=== PATIENT | female | born 1980 ===

== ENCOUNTER 2017-01-18 12:44 | Observation (INO) | payer SELFPAY ==
[2017-01-18 12:47] VITALS: BMI 45.7
[2017-01-18 13:30] LABS: ADD MANUAL DIFF? NO
--- NOTE | 2017-01-18 13:32 | ED PDOC ---
Arrival/HPI - General Chief Complaint: Syncope Time Seen by Provider: 01/18/17 13:07 Historian: Patient - History of Present Illness Narrative History of Present Illness (Text): 01/18/17 13:17 A 36 year old female presents to the emergency department complaining of a syncopal episode at home today. Patient reports the last thing she remembers is feeling unsteady and waking up on the floor. Patient is unsure how long she was passed out. Patient states she has been experiencing intermittent frontal headaches with blurry vision for 1 month. She states her symptoms have worsened over the past week. Patient notes nausea but denies any injuries, head trauma, neck pain, back pain, fever, chills, vomiting, diarrhea, abdominal pain, chest pain, shortness of breath or any other complaints. Denies speech difficulties. Denies injury. Denies fever. Denies facial swelling. Denies new medications. Blurred vision worse when looking in specific directions. PMD: None 01/18/17 18:28 Time/Duration: Prior to Arrival (syncopal episode), Other (1 month headache and blurry vision) Symptom Course: Worsening Quality: Other Context: Other Past Medical History - Provider Review Nursing Documentation Reviewed: Yes - Cardiac Hx Cardiac Disorders: No - Pulmonary Hx Respiratory Disorders: Yes Hx Asthma: Yes - Neurological Hx Neurological Disorder: No - HEENT Hx HEENT Disorder: No - Renal Hx Renal Disorder: No - Endocrine/Metabolic Hx Endocrine Disorders: No - Hematological/Oncological Hx Blood Disorders: No - Integumentary Hx Dermatological Disorder: No Hx Basal Cell Carcinoma: No - Musculoskeletal/Rheumatological Hx Musculoskeletal Disorders: No - Gastrointestinal Hx Gastrointestinal Disorders: No - Genitourinary/Gynecological Hx Genitourinary Disorders: No - Psychiatric Hx Psychophysiologic Disorder: No Hx Substance Use: No Family/Social History - Physician Review Nursing Documentation Reviewed: Yes Family/Social History: CAD/SC Smoking Status: Light Smoker < 10 Cigarettes Daily Hx Alcohol Use: No Hx Substance Use: No Allergies/Home Meds Allergies/Adverse Reactions: Allergies No Known Allergies Allergy (Verified 01/18/17 17:58) Home Medications: Home Meds Medication Instructions Recorded Confirmed No Known Home Med 01/18/17 01/18/17 Review of Systems - Review of Systems Constitutional: Fatigue. absent: Fevers, Night Sweats Eyes: Vision Changes (Blurry vision), Photophobia. absent: Eye Pain ENT: absent: Hearing Changes Respiratory: absent: SOB, Cough Cardiovascular: Syncope. absent: Chest Pain, Edema, HERR Gastrointestinal: Nausea. absent: Abdominal Pain, Diarrhea, Vomiting Genitourinary Female: absent: Dysuria, Urine Output Changes Musculoskeletal: absent: Back Pain, Neck Pain Skin: absent: Rash Neurological: Headache, Dizziness, Gait Changes. absent: Focal Weakness, Speech Changes, Facial Droop, Seizure Endocrine: absent: Polyuria Hemo/Lymphatic: absent: Easy Bleeding Physical Exam - Physical Exam Narrative Physical Exam (Text): Head: Atraumatic. Normocephalic. No sinus tenderness. No rash or swelling. No temporal tenderness or cords. Eyes: Pupils are equal. Visual acuity is intact. Patient with diplopia when looking to left ? nystagmus and limitation with lateral gaze in both eyes, possibly effort related. Visual russell intact. No ptosis. No "floaters". Fundoscopic exam grossly unremarkable. ENT: Mucous membranes are moist and intact. Oropharynx is clear and symmetric. No facial droop. Neck: Supple. Full ROM. No JVD. No lymphadenopathy. No bruits. No meningeal signs. Cardiovascular: Regular rate. Regular rhythm. No murmurs, rubs, or gallops. Distal pulses are 2+ and symmetric. Pulmonary/Chest: No evidence of respiratory distress. Clear to auscultation bilaterally. No wheezing, rales or rhonchi. Abdominal: Soft and non-distended. There is no tenderness. No rebound, guarding, or rigidity. No organomegaly. Good bowel sounds. Back: No CVA tenderness. Extremities: No edema. No cyanosis. No clubbing. Full range of motion in all extremities. No calf tenderness. Skin: Skin is warm and dry. No petechiae. No purpura. Neurological: Alert, awake, and oriented. Normal rapid alternating movements. Normal finger to nose. No ptosis. No facial droop. No pronator drift. Reflexes symmetric and intact. No meningeal signs. ? Cranial nerve palsy with eye gaze. Visual acuity intact. Psychiatric: Good eye contact. Normal interaction, affect, and behavior. Vital Signs Reviewed: Yes Vital Signs Temp Pulse Resp BP Pulse Ox 01/18/17 12:47 98 F 87 16 121/88 100 Temperature: Afebrile Blood Pressure: Normal Pulse: Regular Respiratory Rate: Normal Appearance: Positive for: Well-Appearing, Non-Toxic, Comfortable Pain Distress: None Mental Status: Positive for: Alert and Oriented X 3 Medical Decision Making ED Course and Treatment: 01/18/17 13:17 Impression: A 36 year old female presented after syncopal episode. Patient complains of headache and blurry vision for 1 month. Differential Diagnosis included but are not limited to: cranial nerve deficit, brain mass, ophthalmic disturbance, MS, optic neuritis Plan: -- Head CT -- Chest xray -- EKG -- Labs -- Urinalysis -- Reassess and disposition Progress Notes: Patient reports symptoms of headache and diplopia intermittently for one month. On exam, she has ? cranial nerve palsy, although no meningeal signs. Normal gait in ED, no facial droop. She has intact visual acuity, is able to read her phone without difficulty but has diplopia with lateral gazes. CT obtained and reviewed. Report Date : 01/18/2017 14:25:05 PROCEDURE: CT HEAD WITHOUT CONTRAST. Dictator : Juliann Salmon MD IMPRESSION: Question of cerebellar tonsillar ectopia. Arnold-Chiari 1 malformation cannot be entirely excluded. A dedicated MRI of the brain without intravenous contrast would be helpful for further evaluation. No acute intracranial abnormality. Report Date : 01/18/2017 14:46:02 PROCEDURE: CHEST RADIOGRAPH, 1 VIEW Dictator : Chet Dee MD IMPRESSION: No active disease. Based on CT findings, I consulted with neurology, Dr. Romeo and ordered MRI. Currently no chest pain or sob. No altered mental status. She is afebrile. Denies trauma. Denies taking any medications. BP stable with no hypotension or tachycardia. No chest pain or sob. MRI pending and endorsed to admitting team as well as Dr. Romeo for follow-up. Will admit to telemetry bed for monitoring after syncopal event today. By her history, she does not remember how she wound up on the ground but appears as if it was not prolonged time, she was able to stand up and ambulate afterwards. No reported trauma. Have recommended to patient neurology consultation and pending MRI, ophthamology evaluation. 01/18/17 18:51 - Lab Interpretations Lab Results: 01/18/17 13:15 01/18/17 13:15 Lab Results 01/18/17 13:47: Urine Color Yellow, Urine Appearance Clear, Urine pH 6.5, Ur Specific [place] 1.020, Urine Protein Negative, Urine Glucose (UA) Negative, Urine Ketones Negative, Urine Blood Small H, Urine Nitrate Negative, Urine Bilirubin Negative, Urine Urobilinogen 0.2, Ur Leukocyte Esterase Negative, Urine RBC 2 - 5, Urine WBC Negative, Ur Epithelial Cells 1 - 3 01/18/17 13:15: WBC 6.6, RBC 4.26, Hgb 13.0, Hct 38.5, MCV 90.4, MCH 30.5, MCHC 33.8, RDW 12.6, Plt Count 390, MPV 10.0, Gran % 61.7, Lymph % (Auto) 26.1, Ogle % (Auto) 7.3 H, Eos % (Auto) 4.4, Baso % (Auto) 0.5, Gran # 4.06, Lymph # 1.7, Ogle # 0.5, Eos # 0.3, Baso # 0.03, PT 10.4, INR 0.96, APTT 29.6, Sodium 138, Potassium 3.7, Chloride 103, Carbon Dioxide 27, Anion Gap 12, BUN 13, Creatinine 0.8, Est GFR ( Amer) > 60, Est GFR (Non-Af Amer) > 60, Random Glucose 87, Calcium 8.6, Total Bilirubin 0.4, AST 38, ALT 45, Alkaline Phosphatase 74, Lactate Dehydrogenase 566, Total Creatine Kinase 147, Troponin I < 0.01, Total Protein 7.3, Albumin 3.8, Globulin 3.5, Albumin/Globulin Ratio 1.1 I have reviewed the lab results: Yes - RAD Interpretation Radiology Orders: 01/18/17 13:19 HEAD W/O CONTRAST [CT] Stat CHEST ONE VIEW [RAD] Stat 01/18/17 14:46 BRAIN WITHOUT CONTRAST [MRI] Stat - Medication Orders Current Medication Orders: Acetaminophen (Tylenol 325mg Tab) 650 mg PO Q6 PRN PRN Reason: Pain, Mild (1-3) Lorazepam (Ativan) 2 mg IVP ONCE PRN; Protocol PRN Reason: Seizure activity Nicotine (Nicoderm Cq) 1 patch TD DAILY ANGEL Ondansetron HCl (Zofran Inj) 4 mg IVP Q6 PRN PRN Reason: Nausea/Vomiting Oxycodone/Acetaminophen (Percocet 5/325 Mg Tab) 1 tab PO Q4 PRN PRN Reason: Pain, moderate (4-7) Stop: 01/21/17 16:03 Pantoprazole Sodium (Protonix Ec Tab) 40 mg PO DAILY ANGEL Discontinued Medications Nicotine (Nicoderm Cq) 1 patch TD DAILY ANGEL - Scribe Statement The provider has reviewed the documentation as recorded by the Gilsonibdaija Barber Provider Scribe Attestation: All medical record entries made by the Gilsonibe were at my direction and personally dictated by me. I have reviewed the chart and agree that the record accurately reflects my personal performance of the history, physical exam, medical decision making, and the department course for this patient. I have also personally directed, reviewed, and agree with the discharge instructions and disposition. Disposition/Present on Arrival - Present on Arrival Any Indicators Present on Arrival: No History of DVT/PE: No History of Uncontrolled Diabetes: No Urinary Catheter: No History of Decub. Ulcer: No History Surgical Site Infection Following: None - Disposition Have Diagnosis and Disposition been Completed?: Yes Diagnosis: Syncope, Diplopia Disposition: HOSPITALIZED Disposition Time: 15:00 Patient Plan: Admission, Telemetry Condition: FAIR
[2017-01-18 13:38] LABS: BASO # 0.03 K/mm3 (0.0-2.0); BASO % 0.5 % (0.0-3.0); EOS # 0.3 (0.0-0.7); EOS % 4.4 % (1.5-5.0); GRAN # 4.06 (1.4-6.5); GRAN % 61.7 % (50.0-68.0); HEMATOCRIT 38.5 % (36.0-48.0); LYMPH # 1.7 (1.2-3.4); LYMPH % 26.1 % (22.0-35.0); MEAN CELL VOLUME 90.4 fL (80.0-105.0); MEAN CORPUSCULAR HEMOGLOBIN 30.5 pg (25.0-35.0); MEAN CORPUSCULAR HGB CONC 33.8 g/dl (31.0-37.0); MONO # 0.5 (0.1-0.6); MONO % 7.3 % (1.0-6.0); PLATELET COUNT 390 10^3/uL (120.0-450.0); RED CELL DISTRIBUTION WIDTH 12.6 % (11.5-14.5); WHITE BLOOD COUNT 6.6 10^3/ul (4.5-11.0)
[2017-01-18 13:42] LABS: ALB/GLOB RATIO 1.1 (1.1-1.8); ALKALINE PHOSPHATASE 74 U/L (38-133); ALT/SGPT 45 U/L (7-56); AST/SGOT 38 U/L (15-39); BILIRUBIN,TOTAL 0.4 mg/dL (0.2-1.3); BLOOD UREA NITROGEN 13 mg/dL (7-21); CALCIUM 8.6 mg/dL (8.4-10.5); CARBON DIOXIDE 27 mmol/L (21-33); CHLORIDE 103 mmol/L (98-107); GFR AFRICAN-AMERICAN > 60; GLUCOSE,RANDOM 87 mg/dL (70-110); POTASSIUM 3.7 mmol/L (3.6-5.0); SODIUM 138 mmol/L (132-148); TOTAL PROTEIN 7.3 g/dL (5.8-8.3)
[2017-01-18 13:54] LABS: TROPONIN I < 0.01 ng/mL
[2017-01-18 14:09] LABS: PH,URINE 6.5 (4.7-8.0); URINE APPEARANCE CLEAR (CLEAR); URINE BILIRUBIN NEGATIVE (NEGATIVE); URINE BLOOD SMALL (NEGATIVE); URINE COLOR YELLOW (YELLOW); URINE GLUCOSE (UA) NEGATIVE (NEGATIVE); URINE KETONE NEGATIVE (NEGATIVE); URINE LEUKOCYTE ESTERASE NEGATIVE Leu/uL (NEGATIVE); URINE PROTEIN NEGATIVE mg/dL (<30 mg/dL); URINE UROBILINOGEN 0.2 E.U./dL (<1 E.U./dL)
[2017-01-18 14:18] LABS: INR 0.96 (0.93-1.08); PARTIAL THROMBOPLASTIN TIME 29.6 Seconds (23.7-30.8)
[2017-01-18 14:20] LABS: URINE WBC NEGATIVE /hpf (0-6)
--- NOTE | 2017-01-18 14:26 | CT ---
PROCEDURE: CT HEAD WITHOUT CONTRAST. HISTORY: Headache, double vision COMPARISON: None available. TECHNIQUE: Axial computed tomography images were obtained through the head/brain without intravenous contrast. Radiation dose: Total exam DLP = mGy-cm. This CT exam was performed using one or more of the following dose reduction techniques: Automated exposure control, adjustment of the mA and/or kV according to patient size, and/or use of iterative reconstruction technique. FINDINGS: HEMORRHAGE: No intracranial hemorrhage. BRAIN: Ramsey-white matter differentiation is preserved. There is no mass, mass effect or abnormal extra-axial fluid collection. VENTRICLES: The ventricles are normal in size, shape and configuration. There is apparent cerebellar tonsillar ectopia. CALVARIUM: Unremarkable. PARANASAL SINUSES: There is a retention cyst/polyp in the left maxillary sinus and small retention cyst/polyp in the right maxillary sinus. The remaining included paranasal sinuses are predominantly clear. MASTOID AIR CELLS: Predominantly clear. OTHER FINDINGS: None. IMPRESSION: Question of cerebellar tonsillar ectopia. Arnold-Chiari 1 malformation cannot be entirely excluded. A dedicated MRI of the brain without intravenous contrast would be helpful for further evaluation. No acute intracranial abnormality.
--- NOTE | 2017-01-18 14:47 | RAD ---
PROCEDURE: CHEST RADIOGRAPH, 1 VIEW HISTORY: weakness COMPARISON: None available. FINDINGS: LUNGS: Clear. PLEURA: No pneumothorax or pleural fluid seen. CARDIOVASCULAR: Normal. OSSEOUS STRUCTURES: No significant abnormalities. VISUALIZED UPPER ABDOMEN: Normal. OTHER FINDINGS: None. IMPRESSION: No active disease.
--- NOTE | 2017-01-18 15:19 | CARD ---
APPROVED REPORT EKG Measurement Heart [id number] <Conclusion> Normal sinus rhythm Cannot rule out Anterior infarct, age undetermined Abnormal ECG
--- NOTE | 2017-01-18 17:20 | CP.PCM.HP ---
<Hi Bryan - Last Filed: 01/18/17 17:33> History of Present Illness - History of Present Illness History of Present Illness: HPI: 36 yo F w/ no significant PMHx presents to the ED s/p syncopal episode.Patient notes intermittent headache for the past month but as of this week, it became a lot worse. The pain is mostly in the forehead and behind the ears bilaterally. Pt reports sensitivity to light and the pain is exacerbated when she looks to the left. Pt states having blurry vision and unsteady gait. She reports losing consciousness around 4AM while walking back from the bathroom. She is unsure how long she was passed out. When she woke up, she noticed that her underwear was wet and mild bruising in the L leg. She denies biting her tongue. Pt recently battled an episode of depression and admits to feeling stressed. Pt admits nausea, vomiting, and dizziness but denies fever, chills, confusion, LE swelling, chest pain, abdominal pain, and SOB. PMHx: none PSHx/hosp: none Allergies: NKDA Fam hx: mom DM, HTN. dad- DM Social hx: smokes 1/2ppd, drinks socially, marijuana use. Lives with roommate. 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 Meds: none PMD: none Present on Admission - Present on Admission Any Indicators Present on Admission: No Review of Systems - Constitutional Constitutional: Headache, Weight Gain. absent: Chills, Fever - EENT Eyes: Blurred Vision, Change in Vision, Photophobia. absent: Diplopia Ears: absent: Decreased Hearing, Abnormal Hearing Nose/Mouth/Throat: absent: Dysphagia, Mouth Pain - Cardiovascular Cardiovascular: absent: Chest Pain, Claudication, Dyspnea, Edema, Leg Edema, Palpitations - Respiratory Respiratory: absent: Cough, Dyspnea - Gastrointestinal Gastrointestinal: Nausea, Vomiting. absent: Abdominal Pain, Diarrhea - Genitourinary Genitourinary: absent: Difficulty Urinating, Dysuria - Musculoskeletal Musculoskeletal: absent: Back Pain, Muscle Weakness, Numbness, Tingling - Integumentary Integumentary: absent: Lesions, Rash, Wounds - Neurological Neurological: Disequilibrium, Dizziness, Headaches, Syncope. absent: Weakness - Psychiatric Psychiatric: Anxiety. absent: Depression - Endocrine Endocrine: absent: Fatigue, Palpitations Past Patient History - Infectious Disease Hx of Infectious Diseases: None - Tetanus Immunizations Tetanus Immunization: Unknown - Past Social History Smoking Status: Light Smoker < 10 Cigarettes Daily Chewing Tobacco Use: No Cigar Use: No Alcohol: Occasional Drugs: Cannabis Home Situation {Lives}: Alone, Roommate - CARDIAC Hx Cardiac Disorders: No - PULMONARY Hx Respiratory Disorders: Yes Hx Asthma: Yes - NEUROLOGICAL Hx Neurological Disorder: No - HEENT Hx HEENT Problems: No - RENAL Hx Chronic Kidney Disease: No - ENDOCRINE/METABOLIC Hx Endocrine Disorders: No - HEMATOLOGICAL/ONCOLOGICAL Hx Blood Disorders: No - INTEGUMENTARY Hx Dermatological Problems: No Hx Basil Cell: No - MUSCULOSKELETAL/RHEUMATOLOGICAL Hx Musculoskeletal Disorders: No - GASTROINTESTINAL Hx Gastrointestinal Disorders: No - GENITOURINARY/GYNECOLOGICAL Hx Genitourinary Disorders: No - PSYCHIATRIC Hx Psychophysiologic Disorder: No Hx Substance Use: No - SURGICAL HISTORY Hx Surgeries: No Meds Allergies/Adverse Reactions: Allergies Allergy/AdvReac Type Severity Reaction Status Date / Time No Known Allergies Allergy Verified 01/18/17 17:58 Physical Exam - Constitutional Appears: Non-toxic, No Acute Distress - Head Exam Head Exam: ATRAUMATIC, NORMOCEPHALIC - Eye Exam Eye Exam: EOMI, Normal appearance, PERRL. absent: Conjunctival injection, Scleral icterus Pupil Exam: NORMAL ACCOMODATION, PERRL - ENT Exam ENT Exam: Mucous Membranes Moist, Normal Oropharynx - Neck Exam Neck exam: Positive for: Normal Inspection. Negative for: Tenderness, Thyromegaly - Respiratory Exam Respiratory Exam: Clear to Auscultation Bilateral, NORMAL BREATHING PATTERN. absent: Rales, Rhonchi, Wheezes - Cardiovascular Exam Cardiovascular Exam: REGULAR RHYTHM, +S1, +S2. absent: Gallop, Rubs, Systolic Murmur - GI/Abdominal Exam GI & Abdominal Exam: Normal Bowel Sounds, Soft. absent: Tenderness - Extremities Exam Extremities exam: Positive for: normal capillary refill, normal inspection, pedal pulses present. Negative for: pedal edema, tenderness - Back Exam Back exam: NORMAL INSPECTION. absent: CVA tenderness (L), CVA tenderness (R), rash noted, tenderness - Neurological Exam Neurological exam: Alert, CN II-XII Intact, Oriented x3, Reflexes Normal - Psychiatric Exam Psychiatric exam: Anxious - Skin Skin Exam: Dry, Intact, Normal Color, Warm Results - Vital Signs Recent Vital Signs: Last Vital Signs Temp 98 F 01/18/17 12:47 Pulse 87 01/18/17 12:47 Resp 16 01/18/17 12:47 BP 121/88 01/18/17 12:47 Pulse Ox 100 01/18/17 12:47 - Labs Result Diagrams: 01/18/17 13:15 01/18/17 13:15 Assessment & Plan - Assessment and Plan (Free Text) Assessment: 36 yo M w/ no significant PMHx presenting with 1 month history of headache and an episode of syncope today. Head CT showed possible Arnold-chiari 1 malformation. Neurology and Neuosurgery consulted. Plan: Syncope * Head CT: question of cerebella tonsillar ectopia. Arnold-Chiari 1 malformation cannot be entirely excluded (see full report) * Neuro consulted: MRI of brain w/o contrast ordered as per Dr. Romeo * Neurosurgery consulted, help appreciated * EKG NSR, possible anterior infarct, age undetermined * Carotid & vertebral u/s ordered to r/o vertebral artery disease * ECHO to r/o cardiac causes * F/U a1c, lipid panel, and tsh * seizure procautions * ativan prn seizure activity * f/u EEG * fall precautions * monitor on telemetry Headache * Pain control with Percocet and acetaminophen PRN * Zofran to control nausea PPX: * Zofran * SCD's * PPX * Tylenol Assessment and plan discussed with attending physician. <Nadeen Han - Last Filed: 01/18/17 21:46> Results - Vital Signs Recent Vital Signs: Last Vital Signs Temp 98.3 F 01/18/17 16:02 Pulse 69 01/18/17 16:02 Resp 20 01/18/17 16:02 BP 125/85 01/18/17 16:02 Pulse Ox 98 01/18/17 16:02 - Labs Result Diagrams: 01/18/17 13:15 01/18/17 13:15 Labs: Laboratory Results - last 24 hr 01/18/17 21:05 Lactate Dehydrogenase 567 Total Creatine Kinase 126 Attending/Attestation - Attestation I have personally seen and examined this patient.: Yes I have fully participated in the care of the patient.: Yes I have reviewed all pertinent clinical information: Yes Notes (Text): 01/18/17 21:42 36 year old female with no significant past medical history who presents with complaint of headache, blurred vision and syncopal episode. CT head showed possible cerebellar tonsillar ectopia (Arnold Chiari 1 malformation cannot be excluded). MRI brain is ordered. Neurology and NS evaluations are requested. Will also obtain echocardiogram, carotid dopplers and EEG. Tylenol prn for headache and zofran prn for nausea/vomiting. Nadeen Han MD Hospitalist.
--- NOTE | 2017-01-18 17:52 | MRI ---
PROCEDURE: MRI BRAIN WITHOUT CONTRAST HISTORY: abnormal ct findings COMPARISON: 01/18/2017 CT TECHNIQUE: Multiplanar, multisequence MR images of the brain were obtained without intravenous contrast enhancement. FINDINGS: HEMORRHAGE: None DWI: No evidence of an acute or early subacute infarction. BRAIN PARENCHYMA: No mass effect or edema. No atrophy or chronic microvascular ischemic changes. VENTRICLES: Unremarkable. No hydrocephalus. CRANIUM: Unremarkable. ORBITS: Grossly unremarkable. PARANASAL SINUSES/MASTOIDS: Clear VASCULAR SYSTEM: Skull base flow voids intact. OTHER FINDINGS: The cerebellar tonsils are in normal position can do not extend below the foramen magnum IMPRESSION: Unremarkable non contrast enhanced MRI of the brain.
--- NOTE | 2017-01-18 18:09 | US ---
PROCEDURE: Bilateral carotid artery duplex ultrasound HISTORY: Carotid stenosis PHYSICIAN(S): Binh Granados MD. TECHNIQUE: Duplex sonography and color-flow Doppler were used to evaluate the carotid bifurcations and limited segments of the vertebral arteries bilaterally. FINDINGS: There is mild smooth hypoechoic plaque noted at the carotid bifurcations bilaterally. The peak systolic velocity in the proximal right internal carotid artery is 94 cm/sec. This corresponds to a 20 to 39% proximal right ICA stenosis. Normal systolic velocities are noted in the proximal right external carotid artery. There is antegrade flow in the right vertebral artery. The peak systolic velocity in the proximal left internal carotid artery is 83 cm/sec. This corresponds to a 20 to 39% proximal left ICA stenosis. Normal systolic velocities are noted in the proximal left external carotid artery. There is antegrade flow in the left vertebral artery. IMPRESSION: 1. Bilateral 20-39% proximal ICA stenoses. 2. Antegrade flow in both vertebral arteries.
[2017-01-18] MEDS: Oxycodone/Acetaminophen 5/325 mg Tab PO PRN ×2 (18:51→23:02)
[2017-01-18 21:50] LABS: TROPONIN I < 0.01 ng/mL
[2017-01-18] MEDS ORDERED: Pneumococcal 23-Valent Vaccine IM ONE (22:12)
[2017-01-19 07:12] LABS: ADD MANUAL DIFF? NO
[2017-01-19 07:17] LABS: BASO # 0.02 K/mm3 (0.0-2.0); BASO % 0.4 % (0.0-3.0); EOS # 0.3 (0.0-0.7); EOS % 6.3 % (1.5-5.0); GRAN # 2.69 (1.4-6.5); HEMATOCRIT 39.4 % (36.0-48.0); LYMPH # 1.7 (1.2-3.4); MEAN CELL VOLUME 90.6 fL (80.0-105.0); MEAN CORPUSCULAR HEMOGLOBIN 29.9 pg (25.0-35.0); MEAN PLATELET VOLUME 10.1 fl (7.0-11.0); MONO # 0.5 (0.1-0.6); MONO % 9.3 % (1.0-6.0); PLATELET COUNT 383 10^3/uL (120.0-450.0); RED CELL DISTRIBUTION WIDTH 12.7 % (11.5-14.5); WHITE BLOOD COUNT 5.3 10^3/ul (4.5-11.0)
[2017-01-19 07:42] LABS: ALB/GLOB RATIO 1.1 (1.1-1.8); ALKALINE PHOSPHATASE 61 U/L (38-133); ALT/SGPT 50 U/L (7-56); AST/SGOT 47 U/L (15-39); BILIRUBIN,TOTAL 0.5 mg/dL (0.2-1.3); BLOOD UREA NITROGEN 13 mg/dL (7-21); CALCIUM 8.4 mg/dL (8.4-10.5); CARBON DIOXIDE 29 mmol/L (21-33); CHLORIDE 102 mmol/L (98-107); CHOLESTEROL 223 mg/dL (130-200); GFR AFRICAN-AMERICAN > 60; GLUCOSE,RANDOM 77 mg/dL (70-110); MAGNESIUM 2.1 mg/dL (1.7-2.2); PHOSPHOROUS 4.6 mg/dL (2.5-4.5); SODIUM 139 mmol/L (132-148)
[2017-01-19 07:58] LABS: TROPONIN I < 0.01 ng/mL
[2017-01-19] MEDS: Oxycodone/Acetaminophen 5/325 mg Tab PO PRN (08:09)
[2017-01-19 08:19] LABS: T4 6.8 ug/dL (5.5-11.0)
[2017-01-19 08:32] LABS: THYROID STIMULATING HORMONE 1.9 mIU/mL (0.46-4.68)
[2017-01-19 08:36] VITALS: BP 98/55; RESP 20; TEMP 97.6; O2SAT 97
[2017-01-19] MEDS ORDERED: Pantoprazole 40 mg EC Tab PO SCH (10:00)
[2017-01-19 11:34] VITALS: PULSE 71
--- NOTE | 2017-01-19 13:06 | CARD ---
APPROVED REPORT EXAM: Two-dimensional and M-mode echocardiogram with Doppler and color Doppler. INDICATION Syncope 2D DIMENSIONS Left Atrium (2D)4.5 (1.6-4.0cm)IVSd1.1 (0.7-1.1cm) LVDd4.6 (3.9-5.9cm)PWd1.1 (0.7-1.1cm) LVDs3.4 (2.5-4.0cm)FS (%) 27.8 % LVEF (%)53.9 (>50%) M-Mode DIMENSIONS Aortic Root3.10 (2.2-3.7cm)Aortic Cusp Exc.1.90 (1.5-2.0cm) Aortic Valve AoV Peak Djwejxar840.0cm/Connor Peak GR.7mmHg Mitral Valve MV E Isrpfhqp52.5cm/sMV A Zbcnhzbk72.3cm/sE/A ratio1.4 TDI Lateral E' Peak V14.10cm/sMedial E' Peak V7.60cm/sE/Lateral E'6.3 E/Medial E'11.8 Pulmonary Valve PV Peak Yvdmtseg98.5cm/sPV Peak Grad.2mmHg Tricuspid Valve TR Peak Lopghmyu486tx/sRAP [id number] Peak Gr.21mmHg [id number] LEFT VENTRICLE The left ventricle is normal size. There is normal left ventricular wall thickness. The left ventricular function is normal. The left ventricular ejection fraction is within the normal range. There is normal LV segmental wall motion. The left ventricular diastolic function is normal. RIGHT VENTRICLE The right ventricle is normal size. There is normal right ventricular wall thickness. The right ventricular systolic function is normal. ATRIA The left atrium is mildly dilated. The right atrium size is normal. AORTIC VALVE The aortic valve is normal in structure. No aortic regurgitation is present. MITRAL VALVE The mitral valve is mildly thickened. There is no mitral valve regurgitation noted. TRICUSPID VALVE The tricuspid valve is normal in structure. GREAT VESSELS The aortic root is normal in size. The IVC is normal in size and collapses >50% with inspiration. PERICARDIAL EFFUSION There is no pericardial effusion. <Conclusion> The left ventricle is normal size. There is normal left ventricular wall thickness. The left ventricular function is normal. The left ventricular ejection fraction is within the normal range. There is normal LV segmental wall motion. The left ventricular diastolic function is normal.
--- NOTE | 2017-01-19 14:02 | CP.PCM.DIS ---
<Hi Bryan - Last Filed: 01/19/17 16:13> Provider - Provider Date of Admission: 01/18/17 15:10 Attending physician: Greg Dodson MD Primary care physician: NO PRIMARY CARE PROVIDER Consults: Dr. Osorio Romeo Time Spent in preparation of Discharge (in minutes): 35 Hospital Course - Lab Results Lab Results: Most Recent Lab Values WBC 5.3 10^3/ul (4.5-11.0) 01/19/17 06:45 RBC 4.35 10^6/uL (3.5-6.1) 01/19/17 06:45 Hgb 13.0 gm/dL (12.0-16.0) 01/19/17 06:45 Hct 39.4 % (36.0-48.0) 01/19/17 06:45 MCV 90.6 fL (80.0-105.0) 01/19/17 06:45 MCH 29.9 pg (25.0-35.0) 01/19/17 06:45 MCHC 33.0 g/dl (31.0-37.0) 01/19/17 06:45 RDW 12.7 % (11.5-14.5) 01/19/17 06:45 Plt Count 383 10^3/uL (120.0-450.0) 01/19/17 06:45 MPV 10.1 fl (7.0-11.0) 01/19/17 06:45 Gran % 51.0 % (50.0-68.0) 01/19/17 06:45 Lymph % (Auto) 33.0 % (22.0-35.0) 01/19/17 06:45 [place] % (Auto) 9.3 % (1.0-6.0) H 01/19/17 06:45 Eos % (Auto) 6.3 % (1.5-5.0) H 01/19/17 06:45 Baso % (Auto) 0.4 % (0.0-3.0) 01/19/17 06:45 Gran # 2.69 (1.4-6.5) 01/19/17 06:45 Lymph # 1.7 (1.2-3.4) 01/19/17 06:45 [facility] # 0.5 (0.1-0.6) 01/19/17 06:45 Eos # 0.3 (0.0-0.7) 01/19/17 06:45 Baso # 0.02 K/mm3 (0.0-2.0) 01/19/17 06:45 PT 10.4 Seconds (9.9-11.8) 01/18/17 13:15 INR 0.96 (0.93-1.08) 01/18/17 13:15 APTT 29.6 Seconds (23.7-30.8) 01/18/17 13:15 Sodium 139 mmol/L (132-148) 01/19/17 06:45 Potassium 4.0 mmol/L (3.6-5.0) 01/19/17 06:45 Chloride 102 mmol/L (98-107) 01/19/17 06:45 Carbon Dioxide 29 mmol/L (21-33) 01/19/17 06:45 Anion Gap 12 (10-20) 01/19/17 06:45 BUN 13 mg/dL (7-21) 01/19/17 06:45 Creatinine 0.9 mg/dL (0.5-1.4) 01/19/17 06:45 Est GFR ( Amer) > 60 01/19/17 06:45 Est GFR (Non-Af Amer) > 60 01/19/17 06:45 Random Glucose 77 mg/dL (70-110) 01/19/17 06:45 Hemoglobin A1c 5.9 % (4.2-6.5) 01/19/17 06:45 Calcium 8.4 mg/dL (8.4-10.5) 01/19/17 06:45 Phosphorus 4.6 mg/dL (2.5-4.5) H 01/19/17 06:45 Magnesium 2.1 mg/dL (1.7-2.2) 01/19/17 06:45 Total Bilirubin 0.5 mg/dL (0.2-1.3) 01/19/17 06:45 AST 47 U/L (15-39) H 01/19/17 06:45 ALT 50 U/L (7-56) 01/19/17 06:45 Alkaline Phosphatase 61 U/L (38-133) 01/19/17 06:45 Lactate Dehydrogenase 552 U/L (333-699) 01/19/17 06:45 Total Creatine Kinase 111 U/L (35-230) 01/19/17 06:45 Troponin I < 0.01 ng/mL 01/19/17 06:45 Total Protein 7.0 g/dL (5.8-8.3) 01/19/17 06:45 Albumin 3.6 g/dL (3.0-4.8) 01/19/17 06:45 Globulin 3.3 gm/dL 01/19/17 06:45 Albumin/Globulin Ratio 1.1 (1.1-1.8) 01/19/17 06:45 Triglycerides 120 mg/dL (35-160) 01/19/17 06:45 Cholesterol 223 mg/dL (130-200) H 01/19/17 06:45 LDL Cholesterol Direct 134 mg/dL (0-129) H 01/19/17 06:45 HDL Cholesterol 50 mg/dL (29-60) 01/19/17 06:45 Thyroxine (T4) 6.8 ug/dL (5.5-11.0) 01/19/17 06:45 TSH 3rd Generation 1.90 mIU/mL (0.46-4.68) 01/19/17 06:45 Urine Color Yellow (YELLOW) 01/18/17 13:47 Urine Appearance Clear (CLEAR) 01/18/17 13:47 Urine pH 6.5 (4.7-8.0) 01/18/17 13:47 Ur Specific [place] 1.020 (1.005-1.035) 01/18/17 13:47 Urine Protein Negative mg/dL (<30 mg/dL) 01/18/17 13:47 Urine Glucose (UA) Negative mg/dL (NEGATIVE) 01/18/17 13:47 Urine Ketones Negative mg/dL (NEGATIVE) 01/18/17 13:47 Urine Blood Small (NEGATIVE) H 01/18/17 13:47 Urine Nitrate Negative (NEGATIVE) 01/18/17 13:47 Urine Bilirubin Negative (NEGATIVE) 01/18/17 13:47 Urine Urobilinogen 0.2 E.U./dL (<1 E.U./dL) 01/18/17 13:47 Ur Leukocyte Esterase Negative [place]/uL (NEGATIVE) 01/18/17 13:47 Urine RBC 2 - 5 /hpf (0-2) 01/18/17 13:47 Urine WBC Negative /hpf (0-6) 01/18/17 13:47 Ur Epithelial Cells 1 - 3 /hpf (0-5) 01/18/17 13:47 - Hospital Course Hospital Course: HPI: 36 yo F w/ no significant PMHx presents to the ED s/p syncopal episode.Patient notes intermittent headache for the past month but as of this week, it became a lot worse. The pain is mostly in the forehead and behind the ears bilaterally. Pt reports sensitivity to light and the pain is exacerbated when she looks to the left. Pt states having blurry vision and unsteady gait. She reports losing consciousness around 4AM while walking back from the bathroom. She is unsure how long she was passed out. When she woke up, she noticed that her underwear was wet and mild bruising in the L leg. She denies biting her tongue. Pt recently battled an episode of depression and admits to feeling stressed. Pt admits nausea, vomiting, and dizziness but denies fever, chills, confusion, LE swelling, chest pain, abdominal pain, and SOB. Patient is a 36 y/o F who presented with complaint of headache ,vision changes, and syncopal episode. An initial chest x-ray showed no active disease. Initial EKG showed NSR rate of 73 cannot rule out septal infarct age undetermined. An initial head CT showed question of cerebellar tonsilar ectopia possible Arnold- Chiari malformation. Neurology and neurosurgery were consulted. MRI was performed showing cerebellar tonsils in normal position, unremarkable noncontrast enhanced MRI. Carotid dopplers showed bilateral 20-39% proximal ICA stenosis and antegrade flow in both vertebral arteries. An echocardiogram was performed showing normal LV with normal LVEF. An EEG was performed. Patient's pain controlled with tylenol and percocet. Her A1c was 5.9, cardiac enzymes negative, but found to have elevated cholesterol. She was advised on getting daily exercise and eating a heart healthy diet. She was determined medically stable for discharge as per neurology. She was advised to: follow up with your primary care physician within a week of discharge or if you do not have a primary care, please follow up with the [facility] at [facility]; follow up with your neurologist within a week; make an appointment with an eye doctor for possible prescription glasses; take a baby aspirin daily and use ibuprofen or tylenol for headache; take medications as prescribed; refrain from alcohol, tobacco, or drug use; get daily exercise for at least 30 minutes; and if your condition worsens or new symptoms arise, please return to the emergency room. She verbalized understanding and was discharged home. This is a brief summary of the patient's stay at this facility. For more detail , see patient's full chart. - Date & Time of H&P Date of H&P: 01/18/17 Time of H&P: 17:18 Discharge Exam - Head Exam Head Exam: ATRAUMATIC, NORMOCEPHALIC - Eye Exam Eye Exam: EOMI, Normal appearance, PERRL Pupil Exam: NORMAL ACCOMODATION, PERRL - ENT Exam ENT Exam: Mucous Membranes Moist, Normal Oropharynx - Respiratory Exam Respiratory Exam: NORMAL BREATHING PATTERN. absent: Rales, Rhonchi, Wheezes - Cardiovascular Exam Cardiovascular Exam: REGULAR RHYTHM, +S1, +S2. absent: Gallop, Rubs, Systolic Murmur - GI/Abdominal Exam GI & Abdominal Exam: Normal Bowel Sounds, Soft, Unremarkable. absent: Distended , Tenderness - Extremities Exam Extremities exam: normal capillary refill, normal inspection, pedal pulses present - Back Exam Back exam: NORMAL INSPECTION. absent: muscle spasm, rash noted, tenderness - Neurological Exam Neurological exam: Alert, CN II-XII Intact, Oriented x3 - Psychiatric Exam Psychiatric exam: Normal Affect, Normal Mood - Skin Skin Exam: Dry, Intact, Normal Color Discharge Plan - Follow Up Plan Condition: GOOD Disposition: HOME/ ROUTINE Instructions: How to Stop Smoking (DC), Migraine Headache (DC), Syncope (DC), Acute Headache (DC), Dizziness (GEN), Ocular Migraine (GEN), Syncope (GEN) Additional Instructions: You are medically stable for discharge. Please follow up with your primary care physician within a week of discharge or if you do not have a primary care, please follow up with the [facility] at [facility]. Please follow up with your neurologist within a week. Please make an appointment with an eye doctor for possible prescription glasses. Take a baby aspirin daily and use ibuprofen or tylenol for headache. Please take medications as prescribed. Refrain from alcohol, tobacco, or drug use. Get daily exercise for at least 30 minutes. If your condition worsens or new symptoms arise, please return to the emergency room. Referrals: PCP,NO [Primary Care Provider] - [facility] at [facility] [Outside] Osorio Romeo MD [Staff Provider] - <Nadeen Han - Last Filed: 01/19/17 20:51> Provider - Provider Date of Admission: 01/18/17 15:10 Attending physician: Greg Dodson MD Primary care physician: NO PRIMARY CARE PROVIDER Hospital Course - Lab Results Lab Results: Most Recent Lab Values WBC 5.3 10^3/ul (4.5-11.0) 01/19/17 06:45 RBC 4.35 10^6/uL (3.5-6.1) 01/19/17 06:45 Hgb 13.0 gm/dL (12.0-16.0) 01/19/17 06:45 Hct 39.4 % (36.0-48.0) 01/19/17 06:45 MCV 90.6 fL (80.0-105.0) 01/19/17 06:45 MCH 29.9 pg (25.0-35.0) 01/19/17 06:45 MCHC 33.0 g/dl (31.0-37.0) 01/19/17 06:45 RDW 12.7 % (11.5-14.5) 01/19/17 06:45 Plt Count 383 10^3/uL (120.0-450.0) 01/19/17 06:45 MPV 10.1 fl (7.0-11.0) 01/19/17 06:45 Gran % 51.0 % (50.0-68.0) 01/19/17 06:45 Lymph % (Auto) 33.0 % (22.0-35.0) 01/19/17 06:45 [facility] % (Auto) 9.3 % (1.0-6.0) H 01/19/17 06:45 Eos % (Auto) 6.3 % (1.5-5.0) H 01/19/17 06:45 Baso % (Auto) 0.4 % (0.0-3.0) 01/19/17 06:45 Gran # 2.69 (1.4-6.5) 01/19/17 06:45 Lymph # 1.7 (1.2-3.4) 01/19/17 06:45 [facility] [place] # 0.5 (0.1-0.6) 01/19/17 06:45 Eos # 0.3 (0.0-0.7) 01/19/17 06:45 Baso # 0.02 K/mm3 (0.0-2.0) 01/19/17 06:45 PT 10.4 Seconds (9.9-11.8) 01/18/17 13:15 INR 0.96 (0.93-1.08) 01/18/17 13:15 APTT 29.6 Seconds (23.7-30.8) 01/18/17 13:15 Sodium 139 mmol/L (132-148) 01/19/17 06:45 Potassium 4.0 mmol/L (3.6-5.0) 01/19/17 06:45 Chloride 102 mmol/L (98-107) 01/19/17 06:45 Carbon Dioxide 29 mmol/L (21-33) 01/19/17 06:45 Anion Gap 12 (10-20) 01/19/17 06:45 BUN 13 mg/dL (7-21) 01/19/17 06:45 Creatinine 0.9 mg/dL (0.5-1.4) 01/19/17 06:45 Est GFR ( Amer) > 60 01/19/17 06:45 Est GFR (Non-Af Amer) > 60 01/19/17 06:45 Random Glucose 77 mg/dL (70-110) 01/19/17 06:45 Hemoglobin A1c 5.9 % (4.2-6.5) 01/19/17 06:45 Calcium 8.4 mg/dL (8.4-10.5) 01/19/17 06:45 Phosphorus 4.6 mg/dL (2.5-4.5) H 01/19/17 06:45 Magnesium 2.1 mg/dL (1.7-2.2) 01/19/17 06:45 Total Bilirubin 0.5 mg/dL (0.2-1.3) 01/19/17 06:45 AST 47 U/L (15-39) H 01/19/17 06:45 ALT 50 U/L (7-56) 01/19/17 06:45 Alkaline Phosphatase 61 U/L (38-133) 01/19/17 06:45 Lactate Dehydrogenase 552 U/L (333-699) 01/19/17 06:45 Total Creatine Kinase 111 U/L (35-230) 01/19/17 06:45 Troponin I < 0.01 ng/mL 01/19/17 06:45 Total Protein 7.0 g/dL (5.8-8.3) 01/19/17 06:45 Albumin 3.6 g/dL (3.0-4.8) 01/19/17 06:45 Globulin 3.3 gm/dL 01/19/17 06:45 Albumin/Globulin Ratio 1.1 (1.1-1.8) 01/19/17 06:45 Triglycerides 120 mg/dL (35-160) 01/19/17 06:45 Cholesterol 223 mg/dL (130-200) H 01/19/17 06:45 LDL Cholesterol Direct 134 mg/dL (0-129) H 01/19/17 06:45 HDL Cholesterol 50 mg/dL (29-60) 01/19/17 06:45 Thyroxine (T4) 6.8 ug/dL (5.5-11.0) 01/19/17 06:45 TSH 3rd Generation 1.90 mIU/mL (0.46-4.68) 01/19/17 06:45 Urine Color Yellow (YELLOW) 01/18/17 13:47 Urine Appearance Clear (CLEAR) 01/18/17 13:47 Urine pH 6.5 (4.7-8.0) 01/18/17 13:47 Ur Specific [place] 1.020 (1.005-1.035) 01/18/17 13:47 Urine Protein Negative mg/dL (<30 mg/dL) 01/18/17 13:47 Urine Glucose (UA) Negative mg/dL (NEGATIVE) 01/18/17 13:47 Urine Ketones Negative mg/dL (NEGATIVE) 01/18/17 13:47 Urine Blood Small (NEGATIVE) H 01/18/17 13:47 Urine Nitrate Negative (NEGATIVE) 01/18/17 13:47 Urine Bilirubin Negative (NEGATIVE) 01/18/17 13:47 Urine Urobilinogen 0.2 E.U./dL (<1 E.U./dL) 01/18/17 13:47 Ur Leukocyte Esterase Negative [place]/uL (NEGATIVE) 01/18/17 13:47 Urine RBC 2 - 5 /hpf (0-2) 01/18/17 13:47 Urine WBC Negative /hpf (0-6) 01/18/17 13:47 Ur Epithelial Cells 1 - 3 /hpf (0-5) 01/18/17 13:47 Attending/Attestation - Attestation I have personally seen and examined this patient.: Yes I have fully participated in the care of the patient.: Yes I have reviewed all pertinent clinical information, including history, physical exam and plan: Yes Notes (Text): 01/19/17 20:48 36 year old female with no significant past medical history who presented with complaint of headache, blurred vision and syncopal episode. 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 This was followed up with an MRI brain which was negative. Carotid dopplers and echocardiogram was reviewed as above. EEG was done; she will be called with results. She was seen by neurology who recommended aspirin. Her headache and visual complaints improved. Patient is discharged home to follow up at [facility]. Counselled on diet, exercise and diet modifications. Counselled on abstinence of drugs including marijuana. Will call with results of EEG. Nadeen Han MD Hospitalist.
--- NOTE | 2017-01-29 08:22 | EEG ---
DATE: 01/18/2017 CONDITION OF THE RECORDING: Awake, drowsy, history of syncope versus seizure. MEDICATIONS: Ativan, oxycodone. DESCRIPTION: Background activity of this tracing was composed of 8-9 cycles per second, alpha-like a ctivity, small amount of beta activity. 16-20 cycles per second was noted in the tracing. Theta act ivity 5-7 cycles per second was noted in the tracing. Drowsiness was composed of mixed beta and thet a activity. Photic stimulation did not change the record. No paroxysmal activity was seen in the re cord. IMPRESSION: Normal awake, drowsy electroencephalography. Mohit Romeo MD cc: [id number] TT: 01/26/2017 22:52:14 Confirmation # [id number] Dictation # [id number] [email or web address]
== END 2017-01-19 14:47 | disposition home or self-care (01) ==
LOC: ED 12:44 → ERH 15:10 → INTOOBSV 15:10 → ERH 16:51 → 3RNO 17:51
PROVIDERS: ADMIT Internal Medicine; ATTEND Internal Medicine
DX: R55 Syncope and collapse (principal); H53.2 Diplopia; R26.81 Unsteadiness on feet; R51 Headache; F12.90 Cannabis use, unspecified, uncomplicated; I65.23 Occlusion and stenosis of bilateral carotid arteries; F32.9 Major depressive disorder, single episode, unspecified; H53.8 Other visual disturbances; Z87.891 Personal history of nicotine dependence
CPT/HCPCS: 36415; 70450; 70551; 71010; 80053; 80061; 81001; 82550; 82948; 83036; 83615; 83735; 84100; 84436; 84443; 84484; 85025; 85610; 85730; 93005; 93306; 93880; 95812; 99285; G0378; J2405